=== PATIENT | male | born 1965 | race African-American/Black ===

== ENCOUNTER 2019-10-28 19:30 | Inpatient (IN) | payer BC, OTHER ==
[~2019-10-28] VITALS: Ht 162.6 cm; Wt 108.4 kg
[~2019-10-28 19:30] MED LIST: ALBUTEROL INH
[2019-10-28 20:40] LABS: BASOPHILS % 0.9 % (0.0-2.0); EOSINOPHILS % 3.5 % (0.0-5.0); HEMATOCRIT. 48.6 % (42.0-52.0); LYMPHOCYTES % 19.7 % (20.0-50.0); MEAN CORPUSCULAR HEMOGLOBIN 26.1 pg (28.0-32.0); MEAN CORPUSCULAR VOLUME 79.2 fL (80.0-94.0); MEAN PLATELET VOLUME 9.6 fl (7.4-10.4); MONOCYTES % 7.1 % (2.0-8.0); NEUTROPHILS % 68.8 % (40.0-76.0); PLATELET 325 x1000/uL (130-400); RED BLOOD CELL COUNT 6.13 mill/uL (4.7-6.1); RED CELL DISTRIBUTION WIDTH 13.4 % (11.6-14.6)
[2019-10-28 20:43] LABS: CHLORIDE 97 mEq/L (98-107)
[2019-10-28 20:46] LABS: INR 0.9; PROTHROMBIN TIME 10.2 sec (9.6-11.0)
[2019-10-28 20:50] LABS: ETHANOL BLOOD < 10 mg/dL
[2019-10-28 20:53] LABS: LDL CHOLESTEROL 133 mg/dL (5-100)
[2019-10-28] MEDS ORDERED: ASPIRIN 325MG EC TABLET PO ONE (21:00)
[2019-10-28] MEDS ORDERED: SODIUM CHLORIDE 0.9% 1,000 ML IV ONE (21:01)
[2019-10-28] MEDS ORDERED: INSULIN REGULAR (HUMULIN R) 300UNITS/3ML SUBCUT ONE (21:15)
[2019-10-28 21:22] LABS: CLARITY URINE CLEAR (CLEAR); COLOR URINE YELLOW (YELLOW); KETONES URINE TRACE (NEGATIVE); LEUKOCYTE ESTERASE URINE NEGATIVE (NEGATIVE); NITRITE URINE NEGATIVE (NEGATIVE); OCCULT BLOOD URINE NEGATIVE (NEGATIVE); PH URINE 5.5 (4.5-8.0); PROTEIN URINE 2+ (NEGATIVE); SPECIFIC GRAVITY URINE 1.045 (1.005-1.030); UROBILINOGEN URINE 0.2 E.U./dL (0.2-1.0)
[2019-10-28 21:30] LABS: BG BASE EXCESS -0.6 mmol/L (-2.0-2.0); BG CARBOXYHEMOGLOBIN 0.9 % (0.5-1.5); BG DEOXYHEMOGLOBIN 6.4 % (0.0-5.0); BG FRACTION INSPIRED OXYGEN 21; BG HCO3 ACT 24.4 mmol/L (22.0-26.0); BG METHEMOGLOBIN 0.2 % (0.0-1.5); BG OXYGEN SATURATION 93.5 % (92.0-98.5); BG OXYHEMOGLOBIN 92.5 % (94.0-97.0); BG PCO2 41.6 mmHg (35.0-45.0); BG PH 7.387 (7.350-7.450); BG SAMPLE SITE RIGHT RADIAL; BG TOTAL HEMOGLOBIN 16.1 g/dL (12.0-18.0); BG VENT MODE ROOM AIR
[2019-10-28] MEDS ORDERED: GUAIFENESIN 200MG/10ML SUGAR FREE UDC PO PRN (21:45)
[2019-10-28] MEDS ORDERED: HYDROCODONE/ACETAMINOPHEN 5/325MG TABLET PO PRN (21:45)
[2019-10-28] MEDS ORDERED: ACETAMINOPHEN 325MG TABLET PO PRN (21:45)
[2019-10-28] MEDS ORDERED: ONDANSETRON HCL 4MG/2ML INJ IV PRN (21:45)
[2019-10-28] MEDS ORDERED: CLONIDINE 0.1MG TABLET PO PRN (21:45)
[2019-10-28] MEDS ORDERED: DOCUSATE SODIUM 100MG CAPSULE PO PRN (21:45)
[2019-10-28] MEDS ORDERED: MAGNESIUM/ALUMINUM HYDROXIDE/SIMETHICONE 30ML UDC PO PRN (21:45)
[2019-10-28 21:58] LABS: *AMPHETAMINES SCREEN URINE NEGATIVE (NEGATIVE); *BARBITURATES SCREEN URINE NEGATIVE (NEGATIVE); *BENZODIAZEPINES SCREEN URINE NEGATIVE (NEGATIVE); *COCAINE SCREEN URINE NEGATIVE (NEGATIVE); OPIATES URINE SCREEN NEGATIVE (NEGATIVE)
[2019-10-28 21:59] LABS: CANNABINOID URINE SCREEN NEGATIVE (NEGATIVE); PHENCYCLIDINE URINE SCREEN NEGATIVE (NEGATIVE)
[2019-10-28] MEDS ORDERED: HYDROMORPHONE HCL/PF 2MG/ML CPJ IV PRN (22:00)
[2019-10-28 22:05] LABS: METHADONE URINE SCREEN NEGATIVE (NEGATIVE)
[2019-10-29] MEDS ORDERED: DEXTROSE 50% WATER 50ML SYRINGE IV PRN ×2 (01:00→09:30)
[2019-10-29] MEDS: BLOOD SUGAR DIAGNOSTIC STRIP TEST SCH ×5 (01:10→21:52)
[2019-10-29] MEDS: INSULIN LISPRO (HIGH DOSE) 100 UNITS/ML SUBCUT SCH ×5 (01:18→22:04)
[2019-10-29 04:55] LABS: BASOPHILS % 1.3 % (0.0-2.0); EOSINOPHILS % 0.7 % (0.0-5.0); HEMATOCRIT. 45.3 % (42.0-52.0); HEMOGLOBIN. 15.3 g/dL (14.0-18.0); LYMPHOCYTES % 17.6 % (20.0-50.0); MEAN CORPUSCULAR HEMOGLOBIN 27.1 pg (28.0-32.0); MEAN CORPUSCULAR VOLUME 80.4 fL (80.0-94.0); MEAN PLATELET VOLUME 9.4 fl (7.4-10.4); MONOCYTES % 6.5 % (2.0-8.0); NEUTROPHILS % 73.9 % (40.0-76.0); PLATELET 317 x1000/uL (130-400); RED BLOOD CELL COUNT 5.64 mill/uL (4.7-6.1); RED CELL DISTRIBUTION WIDTH 13.3 % (11.6-14.6)
[2019-10-29 05:04] LABS: CHLORIDE 100 mEq/L (98-107)
[2019-10-29 05:11] LABS: LDL CHOLESTEROL 140 mg/dL (5-100)
[2019-10-29 05:13] LABS: HDL CHOLESTEROL 37 mg/dL (40-59)
[2019-10-29] MEDS: AMLODIPINE 10MG TABLET PO SCH (09:00)
[2019-10-29 09:46] VITALS: BP 118/71
[2019-10-29] MEDS: METOPROLOL TARTRATE 25MG TABLET PO SCH ×2 (09:59→21:59)
[2019-10-29 10:02] VITALS: BP 118/71
[2019-10-29] MEDS ORDERED: PNEUMOCOCCAL 23-VAL P-SAC VAC 0.5 ML IM ONE (11:00)
[2019-10-29] MEDS ORDERED: BLOOD SUGAR DIAGNOSTIC STRIP TEST SCH (11:45)
[2019-10-29 12:00] VITALS: BP 110/69
[2019-10-29] MEDS ORDERED: INSULIN LISPRO 100 UNITS/ML SUBCUT SCH (12:15)
[2019-10-29] MEDS: ASPIRIN 81MG TABLET PO SCH (12:25)
[2019-10-29 16:00] VITALS: BP 139/98
[2019-10-29 20:00] VITALS: BP 118/71
[2019-10-29] MEDS ORDERED: ATORVASTATIN CALCIUM 40MG TABLET PO SCH (21:00)
[2019-10-30] VITALS: BP 117/72
[2019-10-30 04:00] VITALS: BP 113/62
[2019-10-30] MEDS: BLOOD SUGAR DIAGNOSTIC STRIP TEST SCH ×2 (06:09→11:45)
[2019-10-30] MEDS: INSULIN LISPRO (HIGH DOSE) 100 UNITS/ML SUBCUT SCH ×2 (06:39→13:18)
[2019-10-30 08:00] VITALS: BP 142/82
[2019-10-30] MEDS: ASPIRIN 81MG TABLET PO SCH (08:36)
[2019-10-30] MEDS: METOPROLOL TARTRATE 25MG TABLET PO SCH (08:39)
[2019-10-30] MEDS: AMLODIPINE 10MG TABLET PO SCH (08:39)
[2019-10-30 12:00] VITALS: BP 119/60
[2019-10-30 15:01] VITALS: BP 119/66
== END 2019-10-30 18:11 | disposition home or self-care (01) | DRG 71 ==
LOC: ER 19:30 → MICUSO 21:26 → UNDOADMIN 21:26 → EDBEDREQTM 21:28 → EDBEDREQ 21:28 → 5WST 10-29 08:40
PROVIDERS: ADMIT Hospitalist; ATTEND Hospitalist
DX: G93.40 Encephalopathy, unspecified (principal); Z68.41 Body mass index [BMI] 40.0-44.9, adult; E78.5 Hyperlipidemia, unspecified; I10 Essential (primary) hypertension; E11.9 Type 2 diabetes mellitus without complications; J45.909 Unspecified asthma, uncomplicated; E66.01 Morbid (severe) obesity due to excess calories; F07.81 Postconcussional syndrome; Z79.899 Other long term (current) drug therapy
CPT/HCPCS: 36415; 36600; 70551; 71045; 80053; 80061; 80305; 80320; 81003; 82010; 82375; 82805; 82962; 83036; 83721; 84484; 85025; 90732; 93005; 93306; 93970; 96372; 99291; J1815; J2405; J7030; G0480